=== PATIENT | male | born 1965 | race Asian ===

== ENCOUNTER 2019-10-25 08:41 | Outpatient (CLI) | payer OTHER | END 2019-10-25 19:42 | disposition home or self-care (01) | LOC: RAD 08:41 | DX: R20.2 Paresthesia of skin (principal); R10.31 Right lower quadrant pain ==

== ENCOUNTER 2019-10-31 09:15 | Outpatient (CLI) | payer OTHER | END 2019-10-31 20:10 | disposition home or self-care (01) | LOC: US 09:15 | DX: R20.2 Paresthesia of skin (principal); R10.31 Right lower quadrant pain ==

== ENCOUNTER 2020-01-03 23:39 | Emergency (ER) | payer OTHER ==
[~2020-01-03] VITALS: Ht 177.8 cm; Wt 72.6 kg
[2020-01-04 00:29] LABS: PLATELET COUNT 297 K/uL (142-355)
[2020-01-04 00:43] LABS: POTASSIUM 3.7 mmol/L (3.6-5.2)
[2020-01-04 00:51] LABS: PARTIAL THROMBOPLASTIN TIME 24.5 SECONDS (24.5-33.6)
[2020-01-04 02:18] VITALS: BP 124/96; TEMP 98.3
== END 2020-01-04 02:18 | disposition home or self-care (01) ==
LOC: ED 23:39
PROVIDERS: Family Medicine
DX: F19.10 Other psychoactive substance abuse, uncomplicated (principal); R42 Dizziness and giddiness; R10.31 Right lower quadrant pain
CPT/HCPCS: 36415; 80053; 80307; 81000; 85007; 85027; 85610; 85730; 96372; 99283; J1885

== ENCOUNTER → 2020-03-30 | Outpatient (CLI) | payer OTHER | LOC: RESP 07:45 | DX: R40.4 Transient alteration of awareness (principal) ==

== ENCOUNTER 2020-07-11 10:08 | Outpatient (CLI) | payer OTHER | END 2020-07-11 19:05 | disposition home or self-care (01) | LOC: RAD 10:08 | DX: M79.601 Pain in right arm (principal) ==

== ENCOUNTER 2020-08-22 09:16 | Outpatient (CLI) | payer OTHER | END 2020-08-22 19:45 | disposition home or self-care (01) | LOC: RAD 09:16 | PROVIDERS: ATTEND Nurse Practitioner Family | DX: M25.531 Pain in right wrist (principal); M25.532 Pain in left wrist; M54.2 Cervicalgia ==

== ENCOUNTER 2020-10-24 09:09 | Outpatient (CLI) | payer OTHER | END 2020-10-24 19:33 | disposition home or self-care (01) | LOC: RAD 09:09 | PROVIDERS: ATTEND Nurse Practitioner Family | DX: G60.8 Other hereditary and idiopathic neuropathies (principal); M10.09 Idiopathic gout, multiple sites; M19.071 Primary osteoarthritis, right ankle and foot; M19.072 Primary osteoarthritis, left ankle and foot; Z79.899 Other long term (current) drug therapy ==

== ENCOUNTER 2021-10-21 09:12 | Emergency (ER) | payer BC ==
[~2021-10-21] VITALS: Ht 177.8 cm; Wt 72.6 kg
[2021-10-21 09:17] VITALS: TEMP 97.2
[2021-10-21 09:47] LABS: PLATELET COUNT 225 K/uL (142-355)
[2021-10-21 11:57] VITALS: BP 120/77
== END 2021-10-21 11:57 | disposition home or self-care (01) ==
LOC: ED 09:12
PROVIDERS: Emergency Medicine
DX: M94.0 Chondrocostal junction syndrome [Tietze] (principal); M06.8A Other specified rheumatoid arthritis, other specified site
CPT/HCPCS: 80053; 82550; 84484; 85027; 93005; 96374; 96375; 99284; J1885; J2270; J2405

== ENCOUNTER 2022-06-11 09:36 | Outpatient (CLI) | payer OTHER | END 2022-06-11 18:57 | disposition home or self-care (01) | LOC: RAD 09:36 | PROVIDERS: ATTEND Internal Medicine | DX: Z02.71 Encounter for disability determination (principal); Z98.890 Other specified postprocedural states; M25.562 Pain in left knee; M25.561 Pain in right knee; M25.511 Pain in right shoulder ==